=== PATIENT | female | born 1970 | race African-American/Black ===

== ENCOUNTER 2022-02-14 09:14 | Emergency (ER) | payer MEDICAID ==
[~2022-02-14] VITALS: Ht 172.7 cm; Wt 54.5 kg
[2022-02-14 10:04] LABS: BASOPHILS % (AUTO) 1.2 % (0.0-2.0); EOSINOPHILS % (AUTO) 0.3 % (1.0-6.0); HEMATOCRIT 43.6 % (36-46); HEMOGLOBIN 14.7 g/dL (12.0-16.0); LYMPHOCYTES % (AUTO) 37.3 % (22.0-44.0); MEAN CORPUSCULAR HEMOGLOBIN 28.8 pg (26.0-34.0); MEAN CORPUSCULAR HGB CONC 33.7 G/dL (31.0-37.0); MEAN CORPUSCULAR VOLUME 85 fL (80-100); MONOCYTES # (AUTO) 0.3 K/uL (0.1-1.0); MONOCYTES % (AUTO) 10.2 % (2.0-9.0); NEUTROPHILS # (AUTO) 1.3 K/uL (1.8-7.7); PLATELET COUNT (AUTO) 264 K/uL (150-450); RED BLOOD CELL COUNT(AUTO) 5.11 MIL/uL (4.00-5.20); RED CELL DISTRIBUTION WIDTH 14.4 % (11.5-14.5)
[2022-02-14 10:11] LABS: ANION GAP 6 mmol/L (8-16); CALCIUM, TOTAL 9.2 mg/dL (8.8-10.5); CARBON DIOXIDE 28 mmol/L (22-29); CHLORIDE 103 mmol/L (98-107); GLOMERULAR FILTR. RATE CALC > 60 mL/min (>60); GLUCOSE,RANDOM 104 mg/dL (70-110); POTASSIUM 4.7 mmol/L (3.5-5.1); SODIUM SERUM 137 mmol/L (136-145); UREA NITROGEN, BLOOD 22 mg/dL (7-18)
[2022-02-14 10:18] LABS: ALANINE AMINOTRANSFERASE 19 U/L (12-78); ALBUMIN 3.9 g/dL (3.4-5.0); ALKALINE PHOSPHATASE 110 U/L (46-116); ASPARTATE AMINOTRANSFERASE 18 U/L (15-37); BILIRUBIN,TOTAL 0.3 mg/dL (0.1-1.0); TOTAL PROTEIN, SERUM 7.7 g/dL (6.4-8.2)
[2022-02-14 10:44] LABS: COVID AG,FIA SOURCE NASAL SWAB
[2022-02-14 11:24] VITALS: BP 160/80
== END 2022-02-14 11:41 | disposition home or self-care (01) ==
LOC: EMS 09:14
DX: N64.4 Mastodynia (principal); Z20.822 Contact with and (suspected) exposure to COVID-19
CPT/HCPCS: 71045; 80053; 84484; 85025; 93005; 99285; 36415-L1; 36415-TC

== ENCOUNTER 2022-07-20 01:02 | Emergency (ER) | payer MEDICAID ==
[~2022-07-20] VITALS: Ht 165.1 cm; Wt 54.5 kg
[2022-07-20 01:05] VITALS: BP 133/95
[2022-07-20] MEDS ORDERED: CEPH-558 PO (15:36)
== END 2022-07-20 03:00 | disposition left against medical advice (07) ==
LOC: EMS 01:04
DX: Z53.21 Procedure and treatment not carried out due to patient leaving prior to being seen by health care provider (principal)

== ENCOUNTER 2022-07-20 14:20 | Emergency (ER) | payer MEDICAID, OTHER ==
[~2022-07-20] VITALS: Ht 160 cm; Wt 56.8 kg
[2022-07-20] MEDS ORDERED: CEPH-558 PO (15:36)
[2022-07-20 15:57] VITALS: BP 129/78
== END 2022-07-20 16:10 | disposition home or self-care (01) ==
LOC: EMS 14:22
DX: S20.112A Abrasion of breast, left breast, initial encounter (principal); Y04.0XXA Assault by unarmed brawl or fight, initial encounter; Y93.89 Activity, other specified; Y92.89 Other specified places as the place of occurrence of the external cause; Y99.0 Civilian activity done for income or pay; Z90.710 Acquired absence of both cervix and uterus
CPT/HCPCS: 99283; Z7502

== ENCOUNTER 2022-10-20 09:50 | Emergency (ER) | payer MEDICAID ==
[~2022-10-20] VITALS: Ht 160 cm; Wt 52.3 kg
[~2022-10-20 09:50] MED LIST: CEPH-558 PO
[2022-10-20 15:04] VITALS: BP 121/77
[2022-10-20] MEDS ORDERED: IBUP-1492 PO (15:21)
== END 2022-10-20 15:38 | disposition home or self-care (01) ==
LOC: EMS 09:56
DX: S83.91XA Sprain of unspecified site of right knee, initial encounter (principal); Z90.710 Acquired absence of both cervix and uterus; X58.XXXA Exposure to other specified factors, initial encounter; Y93.89 Activity, other specified; Y92.89 Other specified places as the place of occurrence of the external cause; Y99.8 Other external cause status
CPT/HCPCS: 76881; 93971; 99285; Z7502

== ENCOUNTER 2022-10-30 00:13 | Emergency (ER) | payer MEDICAID ==
[~2022-10-30] VITALS: Ht 160 cm; Wt 52.7 kg
[~2022-10-30 00:13] MED LIST changes: -CEPH-558 PO; +IBUP-1492 PO
[2022-10-30 00:53] LABS: BASOPHILS % (AUTO) 1.1 % (0.0-2.0); EOSINOPHILS % (AUTO) 1.3 % (1.0-6.0); HEMATOCRIT 39.6 % (36-46); HEMOGLOBIN 13.2 g/dL (12.0-16.0); LYMPHOCYTES # (AUTO) 1.9 K/uL (1.0-4.8); MEAN CORPUSCULAR HGB CONC 33.4 G/dL (31.0-37.0); MEAN CORPUSCULAR VOLUME 87 fL (80-100); MONOCYTES # (AUTO) 0.4 K/uL (0.1-1.0); MONOCYTES % (AUTO) 10.2 % (2.0-9.0); NEUTROPHILS # (AUTO) 1.8 K/uL (1.8-7.7); NEUTROPHILS % (AUTO) 43.4 % (40.0-70.0); PLATELET COUNT (AUTO) 249 K/uL (150-450); RED BLOOD CELL COUNT(AUTO) 4.55 MIL/uL (4.00-5.20); RED CELL DISTRIBUTION WIDTH 14.8 % (11.5-14.5)
[2022-10-30 01:01] LABS: ANION GAP 7 mmol/L (8-16); CALCIUM, TOTAL 9.1 mg/dL (8.8-10.5); CARBON DIOXIDE 28 mmol/L (22-29); CHLORIDE 103 mmol/L (98-107); CREATININE 1.03 mg/dL (0.60-1.30); GLOMERULAR FILTR. RATE CALC > 60 mL/min (>60); GLUCOSE,RANDOM 97 mg/dL (70-110); SODIUM SERUM 138 mmol/L (136-145); UREA NITROGEN, BLOOD 13 mg/dL (7-18)
[2022-10-30 01:07] LABS: ALANINE AMINOTRANSFERASE 20 U/L (12-78); ALBUMIN 3.8 g/dL (3.4-5.0); ALKALINE PHOSPHATASE 107 U/L (46-116); ASPARTATE AMINOTRANSFERASE 22 U/L (15-37); BILIRUBIN,TOTAL 0.4 mg/dL (0.1-1.0); TOTAL PROTEIN, SERUM 7.4 g/dL (6.4-8.2)
[2022-10-30 01:12] LABS: B-TYPE NATRIURETIC PEPTIDE 8 pg/mL (0-100)
[2022-10-30 02:07] VITALS: BP 129/70
== END 2022-10-30 03:02 | disposition home or self-care (01) ==
LOC: EMS 00:14
DX: R07.9 Chest pain, unspecified (principal); F17.210 Nicotine dependence, cigarettes, uncomplicated; F12.90 Cannabis use, unspecified, uncomplicated; Z90.710 Acquired absence of both cervix and uterus; Z98.890 Other specified postprocedural states
CPT/HCPCS: 71045; 80053; 83880; 84484; 85025; 93005; 99285; 36415-L1; 36415-TC

== ENCOUNTER → 2022-11-30 | Emergency (ER) | payer SELFPAY ==
[~2022-11-30] VITALS: Ht 160 cm; Wt 55.0 kg
[2022-11-30 21:30] VITALS: BP 117/77
== END | disposition still patient (30) ==
LOC: EMS 19:07
DX: R00.2 Palpitations (principal); F41.9 Anxiety disorder, unspecified; Z90.710 Acquired absence of both cervix and uterus; Z98.890 Other specified postprocedural states; Z87.891 Personal history of nicotine dependence
CPT/HCPCS: 93005; 99284; Z7502

== ENCOUNTER 2022-12-06 21:54 | Emergency (ER) | payer SELFPAY ==
[~2022-12-06] VITALS: Ht 160 cm; Wt 55.0 kg
[2022-12-06 22:12] VITALS: BP 137/89
== END 2022-12-06 22:45 | disposition left against medical advice (07) ==
LOC: EMS 21:54
DX: R07.9 Chest pain, unspecified (principal); Z53.21 Procedure and treatment not carried out due to patient leaving prior to being seen by health care provider
CPT/HCPCS: 93005; 99281; Z7502

== ENCOUNTER 2022-12-18 01:17 | Emergency (ER) | payer MEDICAID ==
[~2022-12-18] VITALS: Ht 157.5 cm; Wt 55.0 kg
[2022-12-18 02:04] VITALS: BP 132/66
[2022-12-18 03:09] LABS: BASOPHILS % (AUTO) 0.9 % (0.0-2.0); EOSINOPHILS % (AUTO) 1.9 % (1.0-6.0); HEMATOCRIT 40.9 % (36-46); LYMPHOCYTES # (AUTO) 1.4 K/uL (1.0-4.8); MEAN CORPUSCULAR HEMOGLOBIN 29.4 pg (26.0-34.0); MEAN CORPUSCULAR HGB CONC 34.4 G/dL (31.0-37.0); MEAN CORPUSCULAR VOLUME 86 fL (80-100); MONOCYTES # (AUTO) 0.4 K/uL (0.1-1.0); MONOCYTES % (AUTO) 11.3 % (2.0-9.0); NEUTROPHILS # (AUTO) 1.6 K/uL (1.8-7.7); NEUTROPHILS % (AUTO) 44.9 % (40.0-70.0); PLATELET COUNT (AUTO) 256 K/uL (150-450); RED BLOOD CELL COUNT(AUTO) 4.77 MIL/uL (4.00-5.20); RED CELL DISTRIBUTION WIDTH 14.5 % (11.5-14.5)
[2022-12-18 03:15] LABS: ANION GAP 7 mmol/L (8-16); CALCIUM, TOTAL 9.6 mg/dL (8.8-10.5); CARBON DIOXIDE 30 mmol/L (22-29); CHLORIDE 103 mmol/L (98-107); CREATININE 0.86 mg/dL (0.60-1.30); GLOMERULAR FILTR. RATE CALC > 60 mL/min (>60); GLUCOSE,RANDOM 85 mg/dL (70-110); SODIUM SERUM 140 mmol/L (136-145); UREA NITROGEN, BLOOD 21 mg/dL (7-18)
[2022-12-18] MEDS ORDERED: HYDR-4808 PO (03:47)
== END 2022-12-18 04:04 | disposition home or self-care (01) ==
LOC: EMS 01:20
DX: R07.9 Chest pain, unspecified (principal); F41.9 Anxiety disorder, unspecified; G47.00 Insomnia, unspecified; R00.2 Palpitations; Z87.891 Personal history of nicotine dependence; Z90.710 Acquired absence of both cervix and uterus; Z98.890 Other specified postprocedural states
CPT/HCPCS: 80048; 84484; 85025; 93005; 99284; 99406

== ENCOUNTER 2023-01-30 22:49 | Emergency (ER) | payer MEDICAID ==
[~2023-01-30 22:49] MED LIST changes: +HYDR-4808 PO
== END 2023-01-30 23:36 | disposition home or self-care (01) ==
LOC: EMS 22:49
DX: R06.02 Shortness of breath (principal); Z53.21 Procedure and treatment not carried out due to patient leaving prior to being seen by health care provider

== ENCOUNTER 2023-10-07 00:07 | Emergency (ER) | payer OTHER ==
[~2023-10-07] VITALS: Ht 167.6 cm; Wt 65.0 kg
[~2023-10-07 00:07] MED LIST changes: +ACET-2080 PO; +IBUP-1554 PO; +ONDA-104 PO
[2023-10-07 00:31] VITALS: BP 131/89; PULSE 85; RESP 18; TEMP 98.5
[2023-10-07] MEDS ORDERED: IBUP-1492 PO (00:41)
[2023-10-07] MEDS ORDERED: ACET-3385 PO (00:41)
[2023-10-07] MEDS ORDERED: LIDOCAINE 5% TRANSDERMAL PATCH TD ONE (00:45)
[2023-10-07] MEDS ORDERED: KETOROLAC TROMETHAMINE 30 MG/ML VIAL IM ONE (00:45)
== END 2023-10-07 00:54 | disposition home or self-care (01) ==
LOC: EMS 00:08
DX: M54.12 Radiculopathy, cervical region (principal); Z87.891 Personal history of nicotine dependence; Z90.710 Acquired absence of both cervix and uterus
CPT/HCPCS: 99283; J1885

== ENCOUNTER 2023-10-09 09:53 | Emergency (ER) | payer OTHER ==
[~2023-10-09] VITALS: Ht 160 cm; Wt 58.6 kg
[~2023-10-09 09:53] MED LIST changes: +ACET-3385 PO
[2023-10-09 10:08] VITALS: TEMP 99.1
[2023-10-09] MEDS ORDERED: AMOX500C2 PO (12:52)
[2023-10-09 13:05] VITALS: BP 136/71; PULSE 87; RESP 18
== END 2023-10-09 13:29 | disposition home or self-care (01) ==
LOC: EMS 09:53
DX: I88.9 Nonspecific lymphadenitis, unspecified (principal); Z87.891 Personal history of nicotine dependence; Z90.710 Acquired absence of both cervix and uterus
CPT/HCPCS: 99283

== ENCOUNTER → 2023-10-19 | Emergency (ER) | payer OTHER ==
[~2023-10-19] VITALS: Ht 175.3 cm; Wt 63.6 kg
[~2023-10-19] MED LIST changes: -ACET-2080 PO; +AMOX500C2 PO; -HYDR-4808 PO; -IBUP-1554 PO; -ONDA-104 PO
[2023-10-19 19:03] VITALS: BP 124/79; PULSE 89; RESP 18; TEMP 98.7
== END | disposition still patient (30) ==
LOC: EMS 18:49
DX: R51.9 Headache, unspecified (principal); Z53.21 Procedure and treatment not carried out due to patient leaving prior to being seen by health care provider
CPT/HCPCS: 99281; Z7502

== ENCOUNTER 2023-10-28 00:57 | Emergency (ER) | payer OTHER ==
[~2023-10-28] VITALS: Ht 162.6 cm; Wt 58.6 kg
[~2023-10-28 00:57] MED LIST changes: -AMOX500C2 PO
[2023-10-28 01:02] VITALS: TEMP 98.1
[2023-10-28 03:45] LABS: ANION GAP 8 mmol/L (8-16); BASOPHILS % (AUTO) 1.4 % (0.0-2.0); CARBON DIOXIDE 28 mmol/L (22-29); CHLORIDE 103 mmol/L (98-107); EOSINOPHILS % (AUTO) 1.8 % (1.0-6.0); GLOMERULAR FILTR. RATE CALC > 60 mL/min (>60); GLUCOSE,RANDOM 104 mg/dL (70-110); HEMATOCRIT 40.5 % (36-46); HEMOGLOBIN 13.6 g/dL (12.0-16.0); LYMPHOCYTES # (AUTO) 1.5 K/uL (1.0-4.8); LYMPHOCYTES % (AUTO) 34.7 % (22.0-44.0); MEAN CORPUSCULAR HEMOGLOBIN 28.6 pg (26.0-34.0); MEAN CORPUSCULAR HGB CONC 33.6 G/dL (31.0-37.0); MEAN CORPUSCULAR VOLUME 85 fL (80-100); MONOCYTES # (AUTO) 0.5 K/uL (0.1-1.0); MONOCYTES % (AUTO) 11.7 % (2.0-9.0); NEUTROPHILS # (AUTO) 2.1 K/uL (1.8-7.7); NEUTROPHILS % (AUTO) 50.4 % (40.0-70.0); PLATELET COUNT (AUTO) 333 K/uL (150-450); POTASSIUM 4.2 mmol/L (3.5-5.1); RED BLOOD CELL COUNT(AUTO) 4.77 MIL/uL (4.00-5.20); SODIUM SERUM 139 mmol/L (136-145); UREA NITROGEN, BLOOD 16 mg/dL (7-18); WHITE BLOOD COUNT (AUTO) 4.2 K/uL (4.5-11.0)
[2023-10-28 03:53] LABS: ALCOHOL, BLOOD (SERUM) < 3 mg/dL (0-10)
[2023-10-28 03:54] LABS: TROPONIN I-HIGH SENSITIVITY Less Than 4 ng/L (<51)
[2023-10-28 04:10] LABS: ALANINE AMINOTRANSFERASE 15 U/L (12-78); ALBUMIN 4.1 g/dL (3.4-5.0); ALKALINE PHOSPHATASE 112 U/L (46-116); ASPARTATE AMINOTRANSFERASE 14 U/L (15-37); BILIRUBIN,TOTAL 0.3 mg/dL (0.1-1.0); CREATINE KINASE, TOTAL ONLY 82 U/L (26-192); TOTAL PROTEIN, SERUM 7.5 g/dL (6.4-8.2)
[2023-10-28 04:13] LABS: B-TYPE NATRIURETIC PEPTIDE < 5 pg/mL (0-100)
[2023-10-28 05:12] VITALS: BP 121/75; PULSE 75; RESP 18
== END 2023-10-28 05:27 | disposition home or self-care (01) ==
LOC: EMS 00:58
DX: R00.2 Palpitations (principal); G43.909 Migraine, unspecified, not intractable, without status migrainosus; Z90.710 Acquired absence of both cervix and uterus; Z87.891 Personal history of nicotine dependence
CPT/HCPCS: 99284; 80053; 82550; 83880; 84484; 84703; 85025; 36415; 93005; G0480

== ENCOUNTER 2023-12-19 03:19 | Emergency (ER) | payer OTHER ==
[~2023-12-19] VITALS: Ht 162.6 cm; Wt 58.2 kg
[2023-12-19 03:27] VITALS: BP 141/86; PULSE 85; RESP 15; TEMP 98.1
[2023-12-19] MEDS ORDERED: AMOX500C2 PO (04:44)
[2023-12-23] MEDS ORDERED: AMOX1TAB16 PO (16:25)
[2023-12-23] MEDS ORDERED: IBUP-1492 PO (16:25)
== END 2023-12-19 05:18 | disposition home or self-care (01) ==
LOC: EMS 03:20
DX: K08.89 Other specified disorders of teeth and supporting structures (principal); G43.909 Migraine, unspecified, not intractable, without status migrainosus; Z87.891 Personal history of nicotine dependence; Z90.710 Acquired absence of both cervix and uterus
CPT/HCPCS: 99283

== ENCOUNTER 2024-01-07 17:04 | Emergency (ER) | payer OTHER ==
[~2024-01-07] VITALS: Ht 167.6 cm; Wt 77.3 kg
[~2024-01-07 17:04] MED LIST changes: -ACET-3385 PO; +AMOX1TAB16 PO; +AMOX500C2 PO
[2024-01-07 17:33] VITALS: BP 118/88; PULSE 91; RESP 18; TEMP 98.6
== END 2024-01-07 20:26 | disposition left against medical advice (07) ==
LOC: EMS 17:04
DX: K08.89 Other specified disorders of teeth and supporting structures (principal); M54.2 Cervicalgia; Z53.21 Procedure and treatment not carried out due to patient leaving prior to being seen by health care provider
CPT/HCPCS: 99281; Z7502

== ENCOUNTER 2024-01-11 02:48 | Emergency (ER) | payer OTHER ==
[~2024-01-11] VITALS: Ht 162.6 cm; Wt 61.4 kg
[2024-01-11 02:50] VITALS: BP 130/76; PULSE 75; RESP 16; TEMP 97.9
[2024-01-11 03:16] LABS: BASOPHILS % (AUTO) 0.8 % (0.0-2.0); EOSINOPHILS % (AUTO) 3.1 % (1.0-6.0); HEMATOCRIT 37.6 % (36-46); HEMOGLOBIN 12.8 g/dL (12.0-16.0); LYMPHOCYTES # (AUTO) 1.9 K/uL (1.0-4.8); MEAN CORPUSCULAR VOLUME 85 fL (80-100); MONOCYTES # (AUTO) 0.4 K/uL (0.1-1.0); MONOCYTES % (AUTO) 11.1 % (2.0-9.0); NEUTROPHILS # (AUTO) 1.2 K/uL (1.8-7.7); PLATELET COUNT (AUTO) 289 K/uL (150-450); RED BLOOD CELL COUNT(AUTO) 4.41 MIL/uL (4.00-5.20); RED CELL DISTRIBUTION WIDTH 14.6 % (11.5-14.5); WHITE BLOOD COUNT (AUTO) 3.7 K/uL (4.5-11.0)
[2024-01-11 03:25] LABS: ANION GAP 8 mmol/L (8-16); CARBON DIOXIDE 29 mmol/L (22-29); CHLORIDE 104 mmol/L (98-107); CREATININE 0.97 mg/dL (0.60-1.30); GLOMERULAR FILTR. RATE CALC > 60 mL/min (>60); GLUCOSE,RANDOM 110 mg/dL (70-110); POTASSIUM 4.2 mmol/L (3.5-5.1); SODIUM SERUM 141 mmol/L (136-145); UREA NITROGEN, BLOOD 21 mg/dL (7-18)
[2024-01-11 03:32] LABS: ALANINE AMINOTRANSFERASE 18 U/L (12-78); ALBUMIN 3.5 g/dL (3.4-5.0); ALKALINE PHOSPHATASE 125 U/L (46-116); ASPARTATE AMINOTRANSFERASE 18 U/L (15-37); BILIRUBIN,TOTAL 0.2 mg/dL (0.1-1.0); TOTAL PROTEIN, SERUM 7.1 g/dL (6.4-8.2)
[2024-01-11 03:32] LABS: COVID AG,FIA SOURCE NASAL SWAB
[2024-01-11 03:33] LABS: TROPONIN I-HIGH SENSITIVITY 5 ng/L (<51)
[2024-01-11] MEDS: FAMOTIDINE 20 MG TABLET PO ONE (03:36)
[2024-01-11] MEDS: MAG HYDROX/ALUMINUM HYD/SIMETH 30 ML SUSPENSION UDCUP PO ONE (03:36)
[2024-01-11 03:38] LABS: INFLUENZA TYPE A NEGATIVE FOR TYPE A (NEGATIVE); INFLUENZA TYPE B NEGATIVE FOR TYPE B (NEGATIVE); SARS-COV2 (COVID) ANTIGEN,FIA Negative (Negative)
[2024-01-11] MEDS ORDERED: OMEP20 PO (03:43)
[2024-01-11] MEDS ORDERED: DIPH-1243 PO (03:50)
== END 2024-01-11 03:59 | disposition home or self-care (01) ==
LOC: EMS 02:48
DX: K21.9 Gastro-esophageal reflux disease without esophagitis (principal); B34.9 Viral infection, unspecified; G43.909 Migraine, unspecified, not intractable, without status migrainosus; Z87.891 Personal history of nicotine dependence; Z90.710 Acquired absence of both cervix and uterus; Z20.822 Contact with and (suspected) exposure to COVID-19
CPT/HCPCS: 80053; 83880; 84484; 84703; 85025; 87804; 93005; 99284

== ENCOUNTER 2024-04-30 06:11 | Emergency (ER) | payer OTHER ==
[~2024-04-30] VITALS: Ht 162.6 cm; Wt 64.0 kg
[~2024-04-30 06:11] MED LIST changes: +AMOX-457 PO; -AMOX1TAB16 PO; +DIPH-1243 PO; +OMEP20 PO
[2024-04-30 06:22] VITALS: TEMP 98
[2024-04-30] MEDS: IBUPROFEN 600 MG TABLET PO ONE (07:19)
[2024-04-30 07:35] VITALS: BP 118/79; PULSE 82; RESP 18
[2024-04-30] MEDS ORDERED: IBUP-1492 PO (07:48)
== END 2024-04-30 07:52 | disposition home or self-care (01) ==
LOC: EMS 06:12
DX: G56.23 Lesion of ulnar nerve, bilateral upper limbs (principal); R20.2 Paresthesia of skin; F17.200 Nicotine dependence, unspecified, uncomplicated
CPT/HCPCS: 99282; 99406; Z7502; Z7610

== ENCOUNTER 2024-05-21 07:17 | Emergency (ER) | payer OTHER ==
[~2024-05-21] VITALS: Ht 160 cm; Wt 64.5 kg
[2024-05-21 07:25] VITALS: BP 129/87; PULSE 91; RESP 19; TEMP 98.1; O2SAT 99
[2024-05-21 08:10] LABS: EOSINOPHILS % (AUTO) 2.6 % (1.0-6.0); HEMATOCRIT 41.7 % (36-46); HEMOGLOBIN 13.9 g/dL (12.0-16.0); LYMPHOCYTES # (AUTO) 1.3 K/uL (1.0-4.8); LYMPHOCYTES % (AUTO) 33.3 % (22.0-44.0); MEAN CORPUSCULAR HEMOGLOBIN 28.2 pg (26.0-34.0); MEAN CORPUSCULAR HGB CONC 33.4 G/dL (31.0-37.0); MEAN CORPUSCULAR VOLUME 85 fL (80-100); MONOCYTES # (AUTO) 0.4 K/uL (0.1-1.0); MONOCYTES % (AUTO) 9.7 % (2.0-9.0); NEUTROPHILS # (AUTO) 2.1 K/uL (1.8-7.7); NEUTROPHILS % (AUTO) 53.4 % (40.0-70.0); PLATELET COUNT (AUTO) 265 K/uL (150-450); RED BLOOD CELL COUNT(AUTO) 4.94 MIL/uL (4.00-5.20); RED CELL DISTRIBUTION WIDTH 14.7 % (11.5-14.5)
[2024-05-21 08:21] LABS: ANION GAP 10 mmol/L (8-16); CALCIUM, TOTAL 8.9 mg/dL (8.8-10.5); CARBON DIOXIDE 26 mmol/L (22-29); CHLORIDE 105 mmol/L (98-107); CREATININE 1.07 mg/dL (0.60-1.30); GLOMERULAR FILTR. RATE CALC > 60 mL/min (>60); GLUCOSE,RANDOM 112 mg/dL (70-110); SODIUM SERUM 141 mmol/L (136-145); UREA NITROGEN, BLOOD 14 mg/dL (7-18)
[2024-05-21] MEDS ORDERED: ONDA-104 PO (08:51)
[2024-05-21] MEDS: ONDANSETRON 4 MG RAPDIS TABLET PO ONE (09:02)
== END 2024-05-21 10:01 | disposition home or self-care (01) ==
LOC: EMS 07:18
DX: F41.9 Anxiety disorder, unspecified (principal); G43.909 Migraine, unspecified, not intractable, without status migrainosus; F17.210 Nicotine dependence, cigarettes, uncomplicated; Z90.710 Acquired absence of both cervix and uterus
CPT/HCPCS: 99284; 80048; 85025; 36415; 93005; Q9967

== ENCOUNTER 2024-05-25 12:25 | Emergency (ER) | payer OTHER ==
[~2024-05-25] VITALS: Ht 162.6 cm; Wt 68.2 kg
[~2024-05-25 12:25] MED LIST changes: +ONDA-104 PO
[2024-05-25 12:34] VITALS: BP 127/78; PULSE 96; RESP 18; TEMP 97.8; O2SAT 99
[2024-05-25] MEDS: MECLIZINE HCL 25 MG TABLET PO ONE (14:12)
[2024-05-25 14:29] LABS: TROPONIN I-HIGH SENSITIVITY 4 ng/L (<51)
[2024-05-25] MEDS ORDERED: PRED-554 PO (15:08)
[2024-05-25] MEDS ORDERED: AMOX250C4 PO (15:08)
== END 2024-05-25 15:20 | disposition home or self-care (01) ==
LOC: EMS 12:25
DX: H65.92 Unspecified nonsuppurative otitis media, left ear (principal); J32.9 Chronic sinusitis, unspecified; G43.909 Migraine, unspecified, not intractable, without status migrainosus; F17.210 Nicotine dependence, cigarettes, uncomplicated; Z90.710 Acquired absence of both cervix and uterus; Z98.890 Other specified postprocedural states
CPT/HCPCS: 71045; 84484; 93005; 99285; 36415-L1; 36415-TC

== ENCOUNTER 2024-07-14 01:34 | Emergency (ER) | payer OTHER ==
[~2024-07-14 01:34] MED LIST changes: -AMOX-457 PO; +AMOX250C4 PO; -AMOX500C2 PO; +PRED-554 PO
== END 2024-07-14 02:22 | disposition left against medical advice (07) ==
LOC: EMS 01:35
DX: Z53.21 Procedure and treatment not carried out due to patient leaving prior to being seen by health care provider (principal)
CPT/HCPCS: 93005

== ENCOUNTER 2024-07-26 03:28 | Emergency (ER) | payer OTHER ==
[~2024-07-26] VITALS: Ht 162.6 cm; Wt 68.2 kg
[2024-07-26 03:31] VITALS: BP 121/98; PULSE 96; RESP 18; TEMP 97.9; O2SAT 99
== END 2024-07-26 05:43 | disposition left against medical advice (07) ==
LOC: EMS 03:28
DX: R51.9 Headache, unspecified (principal); Z53.21 Procedure and treatment not carried out due to patient leaving prior to being seen by health care provider

== ENCOUNTER 2024-08-22 13:37 | Emergency (ER) | payer OTHER | END 2024-08-22 14:24 | disposition left against medical advice (07) | LOC: EMS 13:37 | DX: Z53.21 Procedure and treatment not carried out due to patient leaving prior to being seen by health care provider (principal) ==

== ENCOUNTER 2024-10-01 13:51 | Emergency (ER) | payer OTHER ==
[~2024-10-01] VITALS: Ht 165.1 cm; Wt 78.0 kg
[2024-10-01 13:56] VITALS: TEMP 98
[2024-10-01 14:31] LABS: BASOPHILS % (AUTO) 1.5 % (0.0-2.0); EOSINOPHILS % (AUTO) 1.4 % (1.0-6.0); HEMATOCRIT 41.8 % (36-46); HEMOGLOBIN 13.7 g/dL (12.0-16.0); LYMPHOCYTES # (AUTO) 1.4 K/uL (1.0-4.8); LYMPHOCYTES % (AUTO) 38.6 % (22.0-44.0); MEAN CORPUSCULAR HGB CONC 32.8 G/dL (31.0-37.0); MEAN CORPUSCULAR VOLUME 82 fL (80-100); MONOCYTES # (AUTO) 0.4 K/uL (0.1-1.0); MONOCYTES % (AUTO) 11.6 % (2.0-9.0); NEUTROPHILS # (AUTO) 1.7 K/uL (1.8-7.7); NEUTROPHILS % (AUTO) 46.9 % (40.0-70.0); PLATELET COUNT (AUTO) 378 K/uL (150-450); RED BLOOD CELL COUNT(AUTO) 5.09 MIL/uL (4.00-5.20); RED CELL DISTRIBUTION WIDTH 14.8 % (11.5-14.5); WHITE BLOOD COUNT (AUTO) 3.5 K/uL (4.5-11.0)
[2024-10-01 15:02] LABS: B-TYPE NATRIURETIC PEPTIDE < 5 pg/mL (0-100)
[2024-10-01 15:06] LABS: ANION GAP 9 mmol/L (8-16); CALCIUM, TOTAL 8.9 mg/dL (8.8-10.5); CARBON DIOXIDE 25 mmol/L (22-29); CHLORIDE 102 mmol/L (98-107); CREATININE 0.88 mg/dL (0.60-1.30); GLOMERULAR FILTR. RATE CALC > 60 mL/min (>60); GLUCOSE,RANDOM 93 mg/dL (70-110); SODIUM SERUM 136 mmol/L (136-145); UREA NITROGEN, BLOOD 16 mg/dL (7-18)
[2024-10-01 15:25] LABS: TROPONIN I-HIGH SENSITIVITY Less Than 4 ng/L (<51)
[2024-10-01 15:44] VITALS: BP 121/82; PULSE 81; RESP 16; O2SAT 98
== END 2024-10-01 15:46 | disposition home or self-care (01) ==
LOC: EMS 13:54
DX: R00.2 Palpitations (principal); G43.909 Migraine, unspecified, not intractable, without status migrainosus; F17.210 Nicotine dependence, cigarettes, uncomplicated; Z90.710 Acquired absence of both cervix and uterus; Z79.899 Other long term (current) drug therapy; Z79.52 Long term (current) use of systemic steroids
CPT/HCPCS: 80048; 83735; 83880; 84484; 85025; 93005; 99284

== ENCOUNTER 2024-11-17 19:09 | Emergency (ER) | payer OTHER ==
[~2024-11-17] VITALS: Ht 162.6 cm; Wt 59.1 kg
[2024-11-17 19:26] VITALS: TEMP 98
[2024-11-17 19:45] LABS: APPEARANCE,URINE CLEAR (CLEAR); BILIRUBIN,URINE NEGATIVE (NEGATIVE); COLOR,URINE COLORLESS (YELLOW); GLUCOSE, URINE (UA) NEGATIVE (NEGATIVE); KETONES,URINE NEGATIVE (NEGATIVE); LEUKOCYTE ESTERASE ,URINE NEGATIVE (NEGATIVE); NITRATE,URINE NEGATIVE (NEGATIVE); OCCULT BLOOD,URINE NEGATIVE (NEGATIVE); PROTEIN,URINE NEGATIVE (NEGATIVE); SPECIFIC GRAVITIY, URINE 1.011 (1.003-1.030); UROBILINOGEN,URINE <=1.0 mg/dL (<=1.0)
[2024-11-17] MEDS: OMEPRAZOLE 20 MG CAPSULE PO ONE (19:54)
[2024-11-17] MEDS: PB/HYOSCY/ATR/SCOP/LIDO/MAALOX 55 ML BOTTLE PO ONE (19:54)
[2024-11-17] MEDS ORDERED: HYDR-4527 PO (19:55)
[2024-11-17 20:14] LABS: BACTERIA,URINE Rare /HPF (None Seen); RBC,URINE None Seen /HPF (0-2); WBC,URINE 0-2 /HPF (0-5)
[2024-11-17 20:20] VITALS: BP 121/80; PULSE 84; RESP 16; O2SAT 100
[2024-11-17] MEDS ORDERED: MAG30ORA11 PO (20:25)
[2024-11-17] MEDS ORDERED: OMEP20 PO (20:25)
== END 2024-11-17 20:34 | disposition home or self-care (01) ==
LOC: EMS 19:24 → CANBEDREQ 19:53 → EMS 20:34
DX: R10.13 Epigastric pain (principal); K21.9 Gastro-esophageal reflux disease without esophagitis; F17.210 Nicotine dependence, cigarettes, uncomplicated; Z90.710 Acquired absence of both cervix and uterus
CPT/HCPCS: 81001; 99283

== ENCOUNTER 2024-11-22 08:29 | Emergency (ER) | payer OTHER ==
[~2024-11-22] VITALS: Ht 162.6 cm; Wt 130.0 kg
[~2024-11-22 08:29] MED LIST changes: -AMOX250C4 PO; -DIPH-1243 PO; +HYDR-4527 PO; -IBUP-1492 PO; +MAG30ORA11 PO; +OMEP-148 PO; -OMEP20 PO; -ONDA-104 PO; -PRED-554 PO
[2024-11-22 08:30] VITALS: BP 143/88; PULSE 100; RESP 18; TEMP 97.7; O2SAT 99
== END 2024-11-22 09:58 | disposition left against medical advice (07) ==
LOC: EMS 08:31
DX: H92.02 Otalgia, left ear (principal); Z53.21 Procedure and treatment not carried out due to patient leaving prior to being seen by health care provider

== ENCOUNTER 2024-12-02 19:42 | Emergency (ER) | payer OTHER | END 2024-12-02 20:40 | disposition left against medical advice (07) | LOC: EMS 19:42 | DX: R10.9 Unspecified abdominal pain (principal); Z53.21 Procedure and treatment not carried out due to patient leaving prior to being seen by health care provider ==

== ENCOUNTER 2024-12-19 11:13 | Emergency (ER) | payer OTHER ==
[~2024-12-19] VITALS: Ht 162.6 cm; Wt 63.6 kg
[2024-12-19 11:17] VITALS: TEMP 98.4
[2024-12-19] MEDS ORDERED: ACET-66 PO (11:20)
[2024-12-19] MEDS ORDERED: AMOX500T2 PO (11:20)
[2024-12-19 12:31] LABS: BASOPHILS % (AUTO) 1.8 % (0.0-2.0); EOSINOPHILS % (AUTO) 0.8 % (1.0-6.0); HEMATOCRIT 41.7 % (36-46); HEMOGLOBIN 13.8 g/dL (12.0-16.0); LYMPHOCYTES # (AUTO) 1.3 K/uL (1.0-4.8); LYMPHOCYTES % (AUTO) 41.3 % (22.0-44.0); MEAN CORPUSCULAR HEMOGLOBIN 27.2 pg (26.0-34.0); MEAN CORPUSCULAR HGB CONC 33.1 G/dL (31.0-37.0); MEAN CORPUSCULAR VOLUME 82 fL (80-100); MONOCYTES # (AUTO) 0.3 K/uL (0.1-1.0); MONOCYTES % (AUTO) 10.3 % (2.0-9.0); NEUTROPHILS # (AUTO) 1.4 K/uL (1.8-7.7); NEUTROPHILS % (AUTO) 45.8 % (40.0-70.0); PLATELET COUNT (AUTO) 308 K/uL (150-450); RED BLOOD CELL COUNT(AUTO) 5.06 MIL/uL (4.00-5.20); RED CELL DISTRIBUTION WIDTH 17.2 % (11.5-14.5); WHITE BLOOD COUNT (AUTO) 3.1 K/uL (4.5-11.0)
[2024-12-19 12:35] LABS: ANION GAP 6 mmol/L (8-16); CALCIUM, TOTAL 9.5 mg/dL (8.8-10.5); CARBON DIOXIDE 29 mmol/L (22-29); CHLORIDE 103 mmol/L (98-107); CREATININE 0.94 mg/dL (0.60-1.30); GLOMERULAR FILTR. RATE CALC > 60 mL/min (>60); GLUCOSE,RANDOM 96 mg/dL (70-110); POTASSIUM 4.6 mmol/L (3.5-5.1); SODIUM SERUM 138 mmol/L (136-145); UREA NITROGEN, BLOOD 14 mg/dL (7-18)
[2024-12-19] MEDS ORDERED: BUPR75TA8 PO (12:35)
[2024-12-19 12:45] LABS: LIPASE 26 U/L (16-77)
[2024-12-19] MEDS: AMOX TR/POT CLAV 875 MG/125 MG TABLET PO ONE (12:48)
[2024-12-19] MEDS: KETOROLAC TROMETHAMINE 30 MG/ML VIAL IM ONE (12:49)
[2024-12-19 12:52] LABS: TROPONIN I-HIGH SENSITIVITY Less Than 4 ng/L (<51)
[2024-12-19 12:58] LABS: APPEARANCE,URINE CLEAR (CLEAR); BILIRUBIN,URINE NEGATIVE (NEGATIVE); COLOR,URINE COLORLESS (YELLOW); GLUCOSE, URINE (UA) NEGATIVE (NEGATIVE); KETONES,URINE NEGATIVE (NEGATIVE); LEUKOCYTE ESTERASE ,URINE NEGATIVE (NEGATIVE); NITRATE,URINE NEGATIVE (NEGATIVE); OCCULT BLOOD,URINE NEGATIVE (NEGATIVE); PROTEIN,URINE NEGATIVE (NEGATIVE); SPECIFIC GRAVITIY, URINE 1.012 (1.003-1.030); UROBILINOGEN,URINE <=1.0 mg/dL (<=1.0)
[2024-12-19] MEDS ORDERED: AMOX-457 PO (13:12)
[2024-12-19 13:39] VITALS: BP 133/65; PULSE 86; RESP 18; O2SAT 98
== END 2024-12-19 13:47 | disposition home or self-care (01) ==
LOC: EMS 11:15
DX: K11.20 Sialoadenitis, unspecified (principal); K59.00 Constipation, unspecified; F17.210 Nicotine dependence, cigarettes, uncomplicated; Z90.710 Acquired absence of both cervix and uterus
CPT/HCPCS: 99284; 80048; 81003; 83690; 84484; 85025; 36415; 74018; 96372; J1885

== ENCOUNTER 2024-12-25 04:12 | Emergency (ER) | payer OTHER ==
[~2024-12-25] VITALS: Ht 162.6 cm; Wt 65.9 kg
[~2024-12-25 04:12] MED LIST changes: +ACET-66 PO; +AMOX-457 PO; +AMOX500T2 PO; +BUPR75TA8 PO; -HYDR-4527 PO; -MAG30ORA11 PO; -OMEP-148 PO
[2024-12-25 04:28] VITALS: TEMP 97.9
[2024-12-25 05:34] VITALS: BP 133/73; PULSE 90; RESP 18; O2SAT 99
[2024-12-25 05:57] LABS: BASOPHILS % (AUTO) 0.9 % (0.0-2.0); EOSINOPHILS % (AUTO) 1.8 % (1.0-6.0); HEMATOCRIT 42.8 % (36-46); HEMOGLOBIN 14.4 g/dL (12.0-16.0); LYMPHOCYTES # (AUTO) 1.6 K/uL (1.0-4.8); LYMPHOCYTES % (AUTO) 46.3 % (22.0-44.0); MEAN CORPUSCULAR HEMOGLOBIN 27.6 pg (26.0-34.0); MEAN CORPUSCULAR HGB CONC 33.6 G/dL (31.0-37.0); MEAN CORPUSCULAR VOLUME 82 fL (80-100); MONOCYTES # (AUTO) 0.4 K/uL (0.1-1.0); MONOCYTES % (AUTO) 11.5 % (2.0-9.0); NEUTROPHILS # (AUTO) 1.3 K/uL (1.8-7.7); NEUTROPHILS % (AUTO) 39.5 % (40.0-70.0); PLATELET COUNT (AUTO) 310 K/uL (150-450); RED CELL DISTRIBUTION WIDTH 17.2 % (11.5-14.5); WHITE BLOOD COUNT (AUTO) 3.4 K/uL (4.5-11.0)
[2024-12-25 06:06] LABS: ANION GAP 5 mmol/L (8-16); CALCIUM, TOTAL 9.4 mg/dL (8.8-10.5); CARBON DIOXIDE 30 mmol/L (22-29); CHLORIDE 103 mmol/L (98-107); CREATININE 0.94 mg/dL (0.60-1.30); GLOMERULAR FILTR. RATE CALC > 60 mL/min (>60); GLUCOSE,RANDOM 88 mg/dL (70-110); POTASSIUM 4.3 mmol/L (3.5-5.1); SODIUM SERUM 138 mmol/L (136-145); UREA NITROGEN, BLOOD 15 mg/dL (7-18)
[2024-12-25 06:11] LABS: ALBUMIN 3.8 g/dL (3.4-5.0); BILIRUBIN,DIRECT 0.1 mg/dL (0.00-0.20); BILIRUBIN,TOTAL 0.3 mg/dL (0.1-1.0); TOTAL PROTEIN, SERUM 7.7 g/dL (6.4-8.2)
[2024-12-25] MEDS: MAG HYDROX/ALUMINUM HYD/SIMETH ES 30 ML SUSPENSION UDCUP PO ONE (06:22)
[2024-12-25] MEDS: FAMOTIDINE 20 MG TABLET PO ONE (06:22)
[2024-12-25 06:36] LABS: LIPASE 39 U/L (16-77)
[2024-12-25 06:40] LABS: APPEARANCE,URINE CLEAR (CLEAR); BILIRUBIN,URINE NEGATIVE (NEGATIVE); COLOR,URINE LIGHT YELLOW (YELLOW); GLUCOSE, URINE (UA) NEGATIVE (NEGATIVE); KETONES,URINE NEGATIVE (NEGATIVE); LEUKOCYTE ESTERASE ,URINE TRACE (NEGATIVE); NITRATE,URINE NEGATIVE (NEGATIVE); OCCULT BLOOD,URINE NEGATIVE (NEGATIVE); PH,URINE 6.5 (5.0-8.0); PROTEIN,URINE NEGATIVE (NEGATIVE); SPECIFIC GRAVITIY, URINE 1.012 (1.003-1.030); UROBILINOGEN,URINE <=1.0 mg/dL (<=1.0)
[2024-12-25 06:44] LABS: BACTERIA,URINE None Seen /HPF (None Seen); RBC,URINE None Seen /HPF (0-2); WBC,URINE 0-2 /HPF (0-5)
[2024-12-25 06:48] LABS: TROPONIN I-HIGH SENSITIVITY Less Than 4 ng/L (<51)
[2024-12-25] MEDS: PHENOBARB/HYOSCY/ATROPINE/SCOP 5 ML UDCUP ELIXIR PO ONE (07:16)
[2024-12-25] MEDS: CALCIUM CARBONATE 500 MG CHEWABLE TABLET CHEW ONE (07:59)
== END 2024-12-25 08:02 | disposition home or self-care (01) ==
LOC: EMS 04:13
DX: K21.9 Gastro-esophageal reflux disease without esophagitis (principal); F17.210 Nicotine dependence, cigarettes, uncomplicated; Z87.11 Personal history of peptic ulcer disease; Z90.710 Acquired absence of both cervix and uterus; Z79.899 Other long term (current) drug therapy
CPT/HCPCS: 80048; 80076; 81001; 83690; 84484; 85025; 93005; 99284

== ENCOUNTER 2025-01-09 00:52 | Emergency (ER) | payer OTHER ==
[~2025-01-09] VITALS: Ht 162.6 cm; Wt 63.2 kg
[2025-01-09 00:58] VITALS: TEMP 97.9
[2025-01-09] MEDS: FAMOTIDINE 20 MG/2 ML VIAL IVP ONE (02:07)
[2025-01-09] MEDS: SODIUM CHLORIDE 0.9% 1,000 ML IV ONE (02:08)
[2025-01-09 02:21] LABS: BASOPHILS % (AUTO) 1.1 % (0.0-2.0); EOSINOPHILS % (AUTO) 0.9 % (1.0-6.0); HEMATOCRIT 38.8 % (36-46); HEMOGLOBIN 12.9 g/dL (12.0-16.0); LYMPHOCYTES # (AUTO) 1.9 K/uL (1.0-4.8); LYMPHOCYTES % (AUTO) 43.3 % (22.0-44.0); MEAN CORPUSCULAR HEMOGLOBIN 27.3 pg (26.0-34.0); MEAN CORPUSCULAR HGB CONC 33.2 G/dL (31.0-37.0); MEAN CORPUSCULAR VOLUME 82 fL (80-100); MONOCYTES # (AUTO) 0.4 K/uL (0.1-1.0); MONOCYTES % (AUTO) 8.9 % (2.0-9.0); NEUTROPHILS # (AUTO) 2.1 K/uL (1.8-7.7); NEUTROPHILS % (AUTO) 45.8 % (40.0-70.0); PLATELET COUNT (AUTO) 261 K/uL (150-450); RED BLOOD CELL COUNT(AUTO) 4.73 MIL/uL (4.00-5.20); WHITE BLOOD COUNT (AUTO) 4.5 K/uL (4.5-11.0)
[2025-01-09] MEDS: PB/HYOSCY/ATR/SCOP/LIDO/MAALOX 55 ML BOTTLE PO ONE ×2 (02:22→04:23)
[2025-01-09 02:32] LABS: ANION GAP 7 mmol/L (8-16); CALCIUM, TOTAL 9.4 mg/dL (8.8-10.5); CARBON DIOXIDE 29 mmol/L (22-29); CHLORIDE 102 mmol/L (98-107); CREATININE 1.03 mg/dL (0.60-1.30); GLOMERULAR FILTR. RATE CALC > 60 mL/min (>60); GLUCOSE,RANDOM 89 mg/dL (70-110); POTASSIUM 3.8 mmol/L (3.5-5.1); SODIUM SERUM 138 mmol/L (136-145); UREA NITROGEN, BLOOD 19 mg/dL (7-18)
[2025-01-09 02:36] LABS: ALBUMIN 3.7 g/dL (3.4-5.0); BILIRUBIN,DIRECT 0.1 mg/dL (0.00-0.20); BILIRUBIN,TOTAL 0.4 mg/dL (0.1-1.0); TOTAL PROTEIN, SERUM 7.2 g/dL (6.4-8.2)
[2025-01-09 02:42] LABS: LIPASE 41 U/L (16-77); TROPONIN I-HIGH SENSITIVITY 4 ng/L (<51)
[2025-01-09 03:40] LABS: APPEARANCE,URINE CLEAR (CLEAR); BILIRUBIN,URINE NEGATIVE (NEGATIVE); COLOR,URINE COLORLESS (YELLOW); GLUCOSE, URINE (UA) NEGATIVE (NEGATIVE); LEUKOCYTE ESTERASE ,URINE NEGATIVE (NEGATIVE); NITRATE,URINE NEGATIVE (NEGATIVE); OCCULT BLOOD,URINE NEGATIVE (NEGATIVE); PH,URINE 7.5 (5.0-8.0); PROTEIN,URINE NEGATIVE (NEGATIVE); SPECIFIC GRAVITIY, URINE 1.009 (1.003-1.030); UROBILINOGEN,URINE <=1.0 mg/dL (<=1.0)
[2025-01-09] MEDS ORDERED: PANT-31 PO (04:34)
[2025-01-09] MEDS: PANTOPRAZOLE SODIUM 40 MG/VIAL IVP ONE (04:48)
[2025-01-09 04:56] VITALS: BP 135/63; PULSE 85; RESP 18; O2SAT 99
== END 2025-01-09 04:58 | disposition home or self-care (01) ==
LOC: EMS 00:53
DX: K20.90 Esophagitis, unspecified without bleeding (principal); K29.70 Gastritis, unspecified, without bleeding; F17.210 Nicotine dependence, cigarettes, uncomplicated; Z90.710 Acquired absence of both cervix and uterus; Z79.899 Other long term (current) drug therapy
CPT/HCPCS: 99285; 96374; 96361; 96375; 80048; 80076; 81003; 83690; 84484; 85025; 36415; 74018; 93005; J3490; J2470; J7030

== ENCOUNTER 2025-01-14 12:50 | Emergency (ER) | payer OTHER ==
[~2025-01-14] VITALS: Ht 162.6 cm; Wt 63.0 kg
[~2025-01-14 12:50] MED LIST changes: +PANT-31 PO
[2025-01-14] MEDS ORDERED: PANT40TA54 PO (12:54)
[2025-01-14] MEDS ORDERED: OMEP20CA12 PO (12:54)
[2025-01-14 12:55] VITALS: BP 117/82; PULSE 80; RESP 18; TEMP 98.2; O2SAT 99
[2025-01-14] MEDS ORDERED: FAMO20 PO (13:37)
[2025-01-14] MEDS ORDERED: MAGN1TAB13 PO (13:37)
== END 2025-01-14 13:48 | disposition home or self-care (01) ==
LOC: EMS 12:57
DX: K21.9 Gastro-esophageal reflux disease without esophagitis (principal); R07.89 Other chest pain; R42 Dizziness and giddiness; F17.210 Nicotine dependence, cigarettes, uncomplicated; Z90.710 Acquired absence of both cervix and uterus; Z79.899 Other long term (current) drug therapy
CPT/HCPCS: 93005; 99282; Z7502

== ENCOUNTER 2025-02-25 18:43 | Emergency (ER) | payer OTHER ==
[~2025-02-25] VITALS: Ht 162.6 cm; Wt 61.4 kg
[~2025-02-25 18:43] MED LIST changes: -ACET-66 PO; -AMOX-457 PO; -AMOX500T2 PO; -BUPR75TA8 PO; +FAMO20 PO; +MAGN1TAB13 PO; +OMEP20CA12 PO; -PANT-31 PO; +PANT40TA54 PO
[2025-02-25 19:05] LABS: COVID AG,FIA SOURCE NASAL SWAB
[2025-02-25 19:23] LABS: SARS-COV2 (COVID) ANTIGEN,FIA Negative (Negative)
[2025-02-25 19:24] LABS: INFLUENZA TYPE A NEGATIVE FOR TYPE A (NEGATIVE); INFLUENZA TYPE B NEGATIVE FOR TYPE B (NEGATIVE)
[2025-02-25 21:34] VITALS: TEMP 99.7
[2025-02-25] MEDS ORDERED: ACETAMINOPHEN/CODEINE 300-30 MG TABLET PO ONE (22:15)
[2025-02-25] MEDS: CefTRIAXone 1 GM/DEXTROSE 50 ML IV ONE (22:32)
[2025-02-25] MEDS: IBUPROFEN 400 MG TABLET PO ONE (22:32)
[2025-02-25] MEDS: SODIUM CHLORIDE 0.9% 1,000 ML IV ONE (22:33)
[2025-02-25 22:41] LABS: BASOPHILS % (AUTO) 0.8 % (0.0-2.0); EOSINOPHILS % (AUTO) 0.1 % (1.0-6.0); HEMATOCRIT 36.8 % (36-46); HEMOGLOBIN 12.6 g/dL (12.0-16.0); LYMPHOCYTES # (AUTO) 1.4 K/uL (1.0-4.8); LYMPHOCYTES % (AUTO) 13.8 % (22.0-44.0); MEAN CORPUSCULAR HEMOGLOBIN 27.2 pg (26.0-34.0); MEAN CORPUSCULAR HGB CONC 34.1 G/dL (31.0-37.0); MEAN CORPUSCULAR VOLUME 80 fL (80-100); MONOCYTES # (AUTO) 0.9 K/uL (0.1-1.0); MONOCYTES % (AUTO) 9.3 % (2.0-9.0); NEUTROPHILS # (AUTO) 7.7 K/uL (1.8-7.7); PLATELET COUNT (AUTO) 351 K/uL (150-450); RED BLOOD CELL COUNT(AUTO) 4.62 MIL/uL (4.00-5.20); RED CELL DISTRIBUTION WIDTH 14.8 % (11.5-14.5); WHITE BLOOD COUNT (AUTO) 10.1 K/uL (4.5-11.0)
[2025-02-25 22:50] LABS: ANION GAP 9 mmol/L (8-16); CALCIUM, TOTAL 8.8 mg/dL (8.8-10.5); CARBON DIOXIDE 24 mmol/L (22-29); CHLORIDE 99 mmol/L (98-107); CREATININE 0.87 mg/dL (0.60-1.30); GLOMERULAR FILTR. RATE CALC > 60 mL/min (>60); GLUCOSE,RANDOM 97 mg/dL (70-110); POTASSIUM 3.5 mmol/L (3.5-5.1); SODIUM SERUM 132 mmol/L (136-145); UREA NITROGEN, BLOOD 11 mg/dL (7-18)
[2025-02-26] MEDS ORDERED: AZIT250T9 PO (00:24)
[2025-02-26] MEDS ORDERED: ALBU18HF12 IH (00:24)
[2025-02-26 00:46] VITALS: BP 124/86; PULSE 94; RESP 18; O2SAT 98
== END 2025-02-26 00:48 | disposition home or self-care (01) ==
LOC: EMS 18:43
DX: J18.0 Bronchopneumonia, unspecified organism (principal); G43.909 Migraine, unspecified, not intractable, without status migrainosus; F17.210 Nicotine dependence, cigarettes, uncomplicated; Z90.710 Acquired absence of both cervix and uterus; Z20.822 Contact with and (suspected) exposure to COVID-19; Z98.890 Other specified postprocedural states
CPT/HCPCS: 99284; 96365; 71045; 87426; 80048; 85025; 87040; 87804; 36415; J0696; J7030; 96361

== ENCOUNTER 2025-02-28 05:04 | Emergency (ER) | payer OTHER ==
[~2025-02-28] VITALS: Ht 162.6 cm; Wt 59.5 kg
[~2025-02-28 05:04] MED LIST changes: +ALBU18HF12 IH; +AZIT250T9 PO; -FAMO20 PO; -MAGN1TAB13 PO; -OMEP20CA12 PO; -PANT40TA54 PO
[2025-02-28 05:40] VITALS: TEMP 98.1
[2025-02-28] MEDS: PredniSONE 20 MG TABLET PO ONE (06:37)
[2025-02-28] MEDS: DiphenhydrAMINE HCL 25 MG CAPSULE PO ONE (06:37)
[2025-02-28 06:40] VITALS: BP 127/82; PULSE 88; RESP 18; O2SAT 99
[2025-02-28] MEDS ORDERED: PRED-554 PO (06:53)
[2025-02-28] MEDS ORDERED: AMOX1TAB15 PO (06:54)
[2025-02-28] MEDS ORDERED: DIPH25CA85 PO (06:54)
== END 2025-02-28 07:15 | disposition home or self-care (01) ==
LOC: EMS 05:05
DX: T78.40XA Allergy, unspecified, initial encounter (principal); F17.210 Nicotine dependence, cigarettes, uncomplicated; Z90.710 Acquired absence of both cervix and uterus; X58.XXXA Exposure to other specified factors, initial encounter
CPT/HCPCS: 99283; J7512

== ENCOUNTER → 2025-03-16 | Emergency (ER) | payer OTHER ==
[~2025-03-16] VITALS: Ht 162.6 cm; Wt 61.3 kg
[~2025-03-16] MED LIST changes: +AMOX1TAB15 PO; -AZIT250T9 PO; +DIPH25CA85 PO; +PRED-554 PO
[2025-03-16 14:47] VITALS: BP 126/88; PULSE 100; RESP 18; TEMP 97.8; O2SAT 96
== END | disposition still patient (30) ==
LOC: EMS 14:39
DX: R07.9 Chest pain, unspecified (principal); Z53.21 Procedure and treatment not carried out due to patient leaving prior to being seen by health care provider
CPT/HCPCS: 71045; 93005; 99281

== ENCOUNTER 2025-04-03 04:16 | Emergency (ER) | payer OTHER ==
[~2025-04-03] VITALS: Ht 162.6 cm; Wt 61.4 kg
[2025-04-03 04:24] VITALS: TEMP 97.7
[2025-04-03 06:07] LABS: PLATELET COUNT (AUTO) 306 K/uL (150-450); RED BLOOD CELL COUNT(AUTO) 4.66 MIL/uL (4.00-5.20); RED CELL DISTRIBUTION WIDTH 15.6 % (11.5-14.5); WHITE BLOOD COUNT (AUTO) 3.5 K/uL (4.5-11.0)
[2025-04-03 06:19] LABS: CALCIUM, TOTAL 9.2 mg/dL (8.8-10.5); CREATININE 0.99 mg/dL (0.60-1.30); GLOMERULAR FILTR. RATE CALC > 60 mL/min (>60); GLUCOSE,RANDOM 94 mg/dL (70-110); SODIUM SERUM 139 mmol/L (136-145); UREA NITROGEN, BLOOD 19 mg/dL (7-18)
[2025-04-03 06:20] LABS: ASPARTATE AMINOTRANSFERASE 19.0 U/L (15-37); TOTAL PROTEIN, SERUM 7.2 g/dL (6.4-8.2)
[2025-04-03 06:35] VITALS: BP 131/75; PULSE 78; RESP 18; O2SAT 99
[2025-04-03] MEDS ORDERED: OMEP-148 PO ×2 (06:37→16:45)
[2025-04-03 06:47] LABS: APPEARANCE,URINE CLEAR (CLEAR); GLUCOSE, URINE (UA) NEGATIVE (NEGATIVE); LEUKOCYTE ESTERASE ,URINE NEGATIVE (NEGATIVE); NITRATE,URINE NEGATIVE (NEGATIVE); OCCULT BLOOD,URINE NEGATIVE (NEGATIVE); SPECIFIC GRAVITIY, URINE 1.013 (1.003-1.030)
[2025-04-03 06:58] LABS: TROPONIN I-HIGH SENSITIVITY Less Than 4 ng/L (<51)
== END 2025-04-03 07:23 | disposition home or self-care (01) ==
LOC: EMS 04:19
DX: K21.9 Gastro-esophageal reflux disease without esophagitis (principal); R19.7 Diarrhea, unspecified; R35.0 Frequency of micturition; F17.210 Nicotine dependence, cigarettes, uncomplicated; Z79.52 Long term (current) use of systemic steroids; Z90.710 Acquired absence of both cervix and uterus
CPT/HCPCS: 80048; 80076; 81003; 83690; 84484; 85025; 93005; 99284

== ENCOUNTER 2025-05-23 04:14 | Emergency (ER) | payer OTHER ==
[~2025-05-23] VITALS: Ht 162.6 cm; Wt 61.8 kg
[~2025-05-23 04:14] MED LIST changes: +OMEP-148 PO
[2025-05-23 04:45] VITALS: TEMP 98.1
[2025-05-23] MEDS ORDERED: AMOX1TAB15 PO (05:20)
[2025-05-23] MEDS ORDERED: HYDR-4062 PO (05:20)
[2025-05-23 05:36] VITALS: BP 133/75; PULSE 89; RESP 16; O2SAT 98
[2025-05-23] MEDS ORDERED: ACET-2080 PO (18:49)
== END 2025-05-23 07:10 | disposition home or self-care (01) ==
LOC: EMS 04:14
DX: K02.9 Dental caries, unspecified (principal); F17.210 Nicotine dependence, cigarettes, uncomplicated; Z79.52 Long term (current) use of systemic steroids; Z87.01 Personal history of pneumonia (recurrent); Z90.710 Acquired absence of both cervix and uterus; Z79.899 Other long term (current) drug therapy
CPT/HCPCS: 99283; Z7502

== ENCOUNTER 2025-05-23 16:40 | Emergency (ER) | payer OTHER ==
[~2025-05-23] VITALS: Ht 162.6 cm; Wt 62.0 kg
[~2025-05-23 16:40] MED LIST changes: +HYDR-4062 PO
[2025-05-23 16:46] VITALS: BP 137/84; PULSE 98; RESP 18; TEMP 98.4; O2SAT 98
[2025-05-23] MEDS: ACETAMINOPHEN 500 MG TABLET PO ONE (17:40)
[2025-05-23] MEDS: IBUPROFEN 600 MG TABLET PO ONE (17:40)
[2025-05-23] MEDS ORDERED: ACET-2080 PO (18:49)
[2025-05-23] MEDS: LIDOCAINE/PF 1% 2 ML VIAL IM ONE (18:50)
[2025-05-23] MEDS: CefTRIAXone SODIUM 1 GM/VIAL IM ONE (18:50)
== END 2025-05-23 19:03 | disposition home or self-care (01) ==
LOC: EMS 16:40
DX: K04.7 Periapical abscess without sinus (principal); K08.89 Other specified disorders of teeth and supporting structures; G43.909 Migraine, unspecified, not intractable, without status migrainosus; F17.210 Nicotine dependence, cigarettes, uncomplicated; Z90.710 Acquired absence of both cervix and uterus; Z79.52 Long term (current) use of systemic steroids; Z79.899 Other long term (current) drug therapy; Z98.890 Other specified postprocedural states
CPT/HCPCS: 99283; 96372; J0696; J3490

== ENCOUNTER 2025-05-25 01:07 | Emergency (ER) | payer OTHER ==
[~2025-05-25] VITALS: Ht 160 cm; Wt 61.8 kg
[~2025-05-25 01:07] MED LIST changes: +ACET-2080 PO
[2025-05-25] MEDS ORDERED: CLIN300C58 PO (03:56)
[2025-05-25] MEDS ORDERED: IBUP-1493 PO (03:56)
[2025-05-25 04:30] VITALS: BP 121/76; PULSE 88; RESP 18; TEMP 97.3; O2SAT 99
[2025-05-25] MEDS: KETOROLAC TROMETHAMINE 30 MG/ML VIAL IVP ONE (05:48)
[2025-05-25] MEDS: CLINDAMYCIN 900 MG/D5% WATER 50 ML IV ONE (05:49)
== END 2025-05-25 06:38 | disposition home or self-care (01) ==
LOC: EMS 02:11
DX: K04.7 Periapical abscess without sinus (principal); G43.909 Migraine, unspecified, not intractable, without status migrainosus; F17.210 Nicotine dependence, cigarettes, uncomplicated; Z90.710 Acquired absence of both cervix and uterus; Z79.52 Long term (current) use of systemic steroids; Z79.899 Other long term (current) drug therapy
CPT/HCPCS: 99284; 96365; 96375; J1885; J3490

== ENCOUNTER 2025-07-20 14:40 | Emergency (ER) | payer OTHER ==
[~2025-07-20] VITALS: Ht 160 cm; Wt 61.8 kg
[~2025-07-20 14:40] MED LIST changes: +CLIN300C58 PO; +IBUP-1493 PO
[2025-07-20 14:55] VITALS: TEMP 98.3
[2025-07-20 15:24] LABS: PLATELET COUNT (AUTO) 284 K/uL (150-450); RED BLOOD CELL COUNT(AUTO) 5.15 MIL/uL (4.00-5.20); RED CELL DISTRIBUTION WIDTH 15.5 % (11.5-14.5); WHITE BLOOD COUNT (AUTO) 3.6 K/uL (4.5-11.0)
[2025-07-20 15:43] LABS: CREATINE KINASE, TOTAL ONLY 115 U/L (26-192)
[2025-07-20 15:54] LABS: CALCIUM, TOTAL 8.9 mg/dL (8.8-10.5); CREATININE 0.93 mg/dL (0.60-1.30); GLOMERULAR FILTR. RATE CALC > 60 mL/min (>60); GLUCOSE,RANDOM 92 mg/dL (70-110); SODIUM SERUM 139 mmol/L (136-145); UREA NITROGEN, BLOOD 13 mg/dL (7-18)
[2025-07-20 16:04] LABS: TROPONIN I-HIGH SENSITIVITY Less Than 4 ng/L (<51)
[2025-07-20 16:50] VITALS: BP 125/86; PULSE 94; RESP 18; O2SAT 98
[2025-07-20] MEDS ORDERED: IBUP-1492 PO (17:31)
[2025-07-20] MEDS ORDERED: BUPR-344 PO (17:31)
[2025-07-20] MEDS ORDERED: ACET-2247 PO (17:31)
[2025-07-20] MEDS: LIDOCAINE 5% TRANSDERMAL PATCH TD ONE (18:26)
[2025-07-20] MEDS: KETOROLAC TROMETHAMINE 30 MG/ML VIAL IM ONE (18:26)
== END 2025-07-20 18:27 | disposition home or self-care (01) ==
LOC: EMS 14:40
DX: S29.011A Strain of muscle and tendon of front wall of thorax, initial encounter (principal); N64.4 Mastodynia; G43.909 Migraine, unspecified, not intractable, without status migrainosus; F17.210 Nicotine dependence, cigarettes, uncomplicated; Z76.0 Encounter for issue of repeat prescription; Z79.52 Long term (current) use of systemic steroids; Z90.710 Acquired absence of both cervix and uterus; Z79.899 Other long term (current) drug therapy; X58.XXXA Exposure to other specified factors, initial encounter; Y93.89 Activity, other specified; Y92.89 Other specified places as the place of occurrence of the external cause; Y99.8 Other external cause status
CPT/HCPCS: 99285; 71045; 80048; 82550; 83880; 84484; 85025; 85610; 85730; 36415; 93005; 96372; J1885

== ENCOUNTER 2025-08-20 14:41 | Emergency (ER) | payer OTHER ==
[~2025-08-20] VITALS: Ht 160 cm; Wt 61.8 kg
[~2025-08-20 14:41] MED LIST changes: +ACET-2247 PO; +BUPR-344 PO; +IBUP-1492 PO
[2025-08-20 14:44] VITALS: BP 138/88; PULSE 98; RESP 18; TEMP 98.1; O2SAT 100
[2025-08-20] MEDS: CLINDAMYCIN PHOS 150 MG/ML 4 ML VIAL IM ONE (16:34)
[2025-08-20] MEDS: KETOROLAC TROMETHAMINE 30 MG/ML VIAL IM ONE (16:35)
[2025-08-20] MEDS: LIDOCAINE 1% 10 ML VIAL SQ ONE (16:39)
[2025-08-20] MEDS ORDERED: TRAM50TA5 PO (17:04)
[2025-08-20] MEDS ORDERED: CLIN-142 PO (17:04)
== END 2025-08-20 17:20 | disposition home or self-care (01) ==
LOC: EMS 14:41
DX: K04.7 Periapical abscess without sinus (principal); G43.909 Migraine, unspecified, not intractable, without status migrainosus; F17.210 Nicotine dependence, cigarettes, uncomplicated; Z90.710 Acquired absence of both cervix and uterus; Z79.52 Long term (current) use of systemic steroids; Z79.899 Other long term (current) drug therapy
CPT/HCPCS: 99284; 41800; 96372; J1885; J3490 ×2

== ENCOUNTER 2025-08-21 16:18 | Emergency (ER) | payer OTHER ==
[~2025-08-21] VITALS: Ht 160 cm; Wt 61.8 kg
[~2025-08-21 16:18] MED LIST changes: +CLIN-142 PO; +TRAM50TA5 PO
[2025-08-21 16:21] VITALS: TEMP 98.2
[2025-08-21 17:13] VITALS: BP 139/77; PULSE 86; RESP 18; O2SAT 99
== END 2025-08-21 21:18 | disposition left against medical advice (07) ==
LOC: EMS 16:27
DX: R51.9 Headache, unspecified (principal); Z53.21 Procedure and treatment not carried out due to patient leaving prior to being seen by health care provider
CPT/HCPCS: 99281; Z7502

== ENCOUNTER 2025-09-21 19:55 | Emergency (ER) | payer OTHER ==
[~2025-09-21] VITALS: Ht 162.6 cm; Wt 61.8 kg
[~2025-09-21 19:55] MED LIST changes: -ACET-2080 PO; -ACET-2247 PO; -AMOX1TAB15 PO; -CLIN300C58 PO; -DIPH25CA85 PO; -HYDR-4062 PO; -IBUP-1492 PO; -IBUP-1493 PO; -OMEP-148 PO; -PRED-554 PO
[2025-09-21 20:27] VITALS: BP 127/84; PULSE 77; RESP 14; TEMP 97.9; O2SAT 100
== END 2025-09-21 20:36 | disposition left against medical advice (07) ==
LOC: EMS 19:56
DX: R42 Dizziness and giddiness (principal); Z53.21 Procedure and treatment not carried out due to patient leaving prior to being seen by health care provider
CPT/HCPCS: 99281; Z7502